=== PATIENT | female | born 1950 | race Native Hawaiian/Other Pacific Islander ===

== ENCOUNTER → 2017-08-13 | Outpatient (CLI) | payer MEDICARE, MEDICAID ==
[~2017-08-13] VITALS: Ht 162.6 cm; Wt 56.5 kg
[~2017-08-13] MED LIST: ALEN70TA48 PO; ASPI-825 PO; ATEN50TA PO; ATOR40TA28 GT; GLYB5TAB8 PO; METF10002 PO; VALS160T2 GT
[2017-08-13 13:03] VITALS: BP 150/72
== END | disposition home or self-care (01) ==
LOC: SRCNTR 12:54
PROVIDERS: ATTEND Internal Medicine
DX: R91.8 Other nonspecific abnormal finding of lung field (principal); E89.0 Postprocedural hypothyroidism; Z79.82 Long term (current) use of aspirin; Z85.850 Personal history of malignant neoplasm of thyroid
CPT/HCPCS: G0463

== ENCOUNTER → 2017-10-09 | Outpatient (CLI) | payer MEDICARE, MEDICAID ==
[~2017-10-09] VITALS: Ht 162.6 cm; Wt 56.4 kg
[~2017-10-09] MED LIST changes: -METF10002 PO; +METF10004 PO
[2017-10-09 13:36] VITALS: BP 127/64
== END | disposition home or self-care (01) ==
LOC: SRCNTR 13:30
PROVIDERS: ATTEND Internal Medicine
DX: R91.8 Other nonspecific abnormal finding of lung field (principal); Z85.850 Personal history of malignant neoplasm of thyroid
CPT/HCPCS: G0463

== ENCOUNTER → 2017-11-21 | Outpatient (CLI) | payer MEDICARE, MEDICAID ==
[~2017-11-21] VITALS: Ht 162.6 cm; Wt 55.0 kg
[2017-11-21 10:52] VITALS: BP 117/66
== END | disposition home or self-care (01) ==
LOC: SRCNTR 10:41
PROVIDERS: ATTEND Internal Medicine
DX: B38.2 Pulmonary coccidioidomycosis, unspecified (principal); R91.8 Other nonspecific abnormal finding of lung field; C73 Malignant neoplasm of thyroid gland; E11.9 Type 2 diabetes mellitus without complications; I10 Essential (primary) hypertension
CPT/HCPCS: G0463

== ENCOUNTER → 2022-07-03 | Outpatient (CLI) | payer MEDICAID, MEDICARE ==
[~2022-07-03] MED LIST changes: -ALEN70TA48 PO; +ALEN70TA65 PO; +ATEN-72 PO; -ATEN50TA PO; +METF-446 PO; -METF10004 PO
== END | disposition home or self-care (01) ==
LOC: RADMN 10:41
PROVIDERS: ATTEND Internal Medicine
DX: J43.9 Emphysema, unspecified (principal); M85.88 Other specified disorders of bone density and structure, other site; M47.814 Spondylosis without myelopathy or radiculopathy, thoracic region; R05.9 Cough, unspecified
CPT/HCPCS: 71046